=== PATIENT | female | born 1965 | race Caucasian/White ===

== ENCOUNTER → 2016-10-18 | Outpatient (CLI) | payer OTHER ==
--- NOTE | 2016-10-22 08:50 | MM ---
Reason for exam: screening (asymptomatic). Last mammogram was performed 1 year and 5 months ago. History: Family history of breast cancer in maternal grandmother at age 80. Physical Findings: A clinical breast exam by your physician is recommended on an annual basis and results should be correlated with mammographic findings. MG 3D Screening Mammo W/Cad Bilateral CC and MLO view(s) were taken. Prior study comparison: May 20, 2015, bilateral MG screening mammo w CAD. April 09, 2014, bilateral MG screening mammo w CAD. The breast tissue is heterogeneously dense. This may lower the sensitivity of mammography. No significant changes when compared with prior studies. ASSESSMENT: Negative, BI-RAD 1 RECOMMENDATION: Routine screening mammogram of both breasts in 1 year.
== END | disposition home or self-care (01) ==
LOC: RADMAMWWP 14:52
PROVIDERS: ATTEND Family Medicine
DX: Z12.31 Encounter for screening mammogram for malignant neoplasm of breast (principal)
CPT/HCPCS: 77063; G0202

== ENCOUNTER → 2016-11-21 | Outpatient (CLI) | payer OTHER ==
--- NOTE | 2016-11-21 15:13 | NM ---
EXAMINATION TYPE: NM bone 3 phase DATE OF EXAM: 11/21/2016 1:42 PM COMPARISON: Right hand 16 Nov 2016 HISTORY: Abnormal x-ray, pain in right thumb Triple phase bone scintigraphy was performed following the injection of26.8 mCi Tc 99m MDP. Immediat e images, blood pool and 3 hours post injection images acquired. FINDINGS: Increased radio pharmaceutical uptake is noted at the distal aspect of the first digit of the right h and on blood flow, blood pool and delayed imaging IMPRESSION: Findings compatible with osteomyelitis first digit right hand.
== END | disposition home or self-care (01) ==
LOC: RADNMMAIN 09:54
PROVIDERS: ATTEND Family Medicine
DX: M79.644 Pain in right finger(s) (principal); M85.80 Other specified disorders of bone density and structure, unspecified site; L03.011 Cellulitis of right finger; R93.8 Abnormal findings on diagnostic imaging of other specified body structures
CPT/HCPCS: 78315; A9503

== ENCOUNTER → 2016-12-10 | Day surgery (SDC) | payer OTHER ==
[2016-12-07 13:46] VITALS: BMI 27.3
[~2016-12-10] MED LIST: CLINDAMYCIN 900 MG in DEXTROSE 5% IN WATER 50 ML IVPB ONE; LIDOCAINE 2% INJ 20 MG/ML (20 ML MDV) ONE; LIDOCAINE 2% INJ 20 MG/ML SQ ONE
[2016-12-10 10:22] VITALS: RESP 18
[2016-12-10 12:27] VITALS: BP 127/77; PULSE 78; TEMP 98.6
--- NOTE | 2016-12-10 12:51 | IR ---
EXAMINATION TYPE: IR cvc insert >=5 years DATE OF EXAM: 12/10/2016 COMPARISON: NONE CLINICAL HISTORY: Infection Needs long-term intravenous access for antibiotics. PROCEDURE: After informed consent, the skin overlying the left basilic vein was localized with ultrasound and no alta to be compressible and patent. An ultrasound image was obtained and submitted on the patient's c huynh. The overlying skin was prepped and draped and Lidocaine was used for local anesthesia. A skin aron was made with a scalpel. Access was gained to the vein under ultrasound guidance with a 21 gau ge needle and a 0.018 inch wire was advanced. Access site was dilated with Peel-Away sheath and cath eter tailored to the appropriate length and advanced such that the distal tip is at the cavoatrial ju nction. Spot image was obtained verifying placement. Catheter was fixed to the skin with suture and a sterile dressing was placed following hemostasis. Catheter was aspirated and flushed with saline. Patient was discharged in stable condition without complication. Maximal barrier technique is utili zed. Ultrasound image is documented on the chart. Ultrasound used with sterile technique. Fluoro time and fluoroscopic images submitted to document procedure: 20 intraoperative C-arm images d ocument the procedure, 0.1 minutes fluoroscopy time IMPRESSION: STATUS POST ULTRASOUND AND FLUOROSCOPIC GUIDED PICC LINE PLACEMENT, READY FOR USE. THIS PROCEDURE WAS PERFORMED BY THE UNDERSIGNED.
== END ==
LOC: CATHCVL 10:06
PROVIDERS: ATTEND Radiology Diagnostic Radiology
DX: Z45.2 Encounter for adjustment and management of vascular access device (principal)
CPT/HCPCS: 36569; 76937; 77001; 81025; C1751; C1769; J2001; 80048; 85025; 85652; 86140

== ENCOUNTER → 2017-04-06 | Outpatient (CLI) | payer OTHER ==
--- NOTE | 2017-04-08 08:19 | MR ---
EXAMINATION TYPE: MR hand RT wo/w con DATE OF EXAM: 04/06/2017 COMPARISON: X-ray 11/16/2016, bone scan 11/21/2016 HISTORY: osteomyelitis, no known injury, pain and swelling since September 2016, 6 weeks antibiotic infus ions CONTRAST: Standard multiplanar, multisequence MRI departmental protocol utilizing 7 mL intravenous Gadavist andrew olinium contrast. FINDINGS: Extensive soft tissue edema overlying the first digit. Abnormal marrow destructive process involving the distal phalanx first digit. Remaining osseous structures are intact. Arthropathy of the first carpal metacarpal joint noted. No circumscribed fluid collection identified to suggest surrounding abscess. IMPRESSION: 1. Destructive process distal phalanx first digit with diffuse soft tissue edema in a pattern most ty pical of cellulitis with osteomyelitis.
== END | disposition home or self-care (01) ==
LOC: RADMRIMAIN 13:59
PROVIDERS: ATTEND Internal Medicine Infectious Disease
DX: M86.8X4 Other osteomyelitis, hand (principal); L03.113 Cellulitis of right upper limb
CPT/HCPCS: 73220; A9581

== ENCOUNTER → 2017-07-09 | Outpatient (CLI) | payer OTHER | LOC: CANPRECLI → RADXRYALE 09:16 | PROVIDERS: ATTEND Internal Medicine Infectious Disease | DX: Z53.9 Procedure and treatment not carried out, unspecified reason (principal) ==

== ENCOUNTER → 2017-07-09 | Outpatient (CLI) | payer OTHER ==
--- NOTE | 2017-07-09 15:54 | XR ---
Right hand HISTORY: Osteomyelitis right thumb Correlation to MR right hand 04/06/2017, right hand films 11/16/2016 There is soft tissue swelling noted at the first digit of the right hand. Bone erosion is present as noted on prior MRI and plain film. No evident dislocation. IMPRESSION: Findings suspicious for osteomyelitis first digit right hand
== END ==
LOC: RADXRYALE 11:27
PROVIDERS: ATTEND Internal Medicine Infectious Disease
DX: M86.8X4 Other osteomyelitis, hand (principal)

== ENCOUNTER → 2017-07-09 | Outpatient (CLI) | payer OTHER | LOC: CANPRECLI → RADXRYALE 09:02 | PROVIDERS: ATTEND Internal Medicine Infectious Disease | DX: Z53.9 Procedure and treatment not carried out, unspecified reason (principal) ==

== ENCOUNTER 2017-12-27 07:35 | Day surgery (SDC) | payer OTHER ==
[2017-12-26 10:59] VITALS: BMI 25.7
[~2017-12-27 07:35] MED LIST changes: -CLINDAMYCIN 900 MG in DEXTROSE 5% IN WATER 50 ML IVPB ONE; +LACTATED RINGERS 1,000 ML IV SCH; -LIDOCAINE 2% INJ 20 MG/ML (20 ML MDV) ONE; -LIDOCAINE 2% INJ 20 MG/ML SQ ONE
[2017-12-27 08:01] VITALS: RESP 16; TEMP 98.1
[2017-12-27] MEDS ORDERED: LIDOCAINE 1% 20 ML VIAL (10MG/ML) FOR IV START INTRADERMA ONE (08:15)
[2017-12-27] MEDS ORDERED: MIDAZOLAM 2 MG/2 ML VIAL ONE (08:48)
[2017-12-27] MEDS ORDERED: PROPOFOL 10 MG/ML 20 ML VIAL IV ONE (08:48)
[2017-12-27] MEDS ORDERED: fentaNYL (PF) 50 MCG/ML 2 ML AMP ONE (08:48)
--- NOTE | 2017-12-27 09:18 | P.PCN ---
Date of Procedure: 12/27/17 Procedure(s) Performed: BRIEF HISTORY: Patient is a 52-year-old pleasant white female, scheduled for an elective colonoscopy as a part of screening for colorectal neoplasia. PROCEDURE PERFORMED: Colonoscopy with snare polypectomy. PREOPERATIVE DIAGNOSIS: Screening for colon cancer. IV sedation per Anesthesia. PROCEDURE: After informed consent was obtained, the patient, was brought into the endoscopy unit. IV sedation was administered by Anesthesia under continuous monitoring. Digital rectal examination was normal. Initially the Olympus CF- 160 flexible video colonoscope was then inserted in the rectum, gradually advanced into the cecum without any difficulty. Careful examination was performed as the scope was gradually being withdrawn. Ileocecal valve and the appendiceal orifice were visualized and appeared normal. Prep was excellent. Mucosa of the cecum, ascending colon, transverse colon, descending colon, sigmoid colon, and rectum appeared normal. In the proximal rectum there were 2 polyps measuring 5 and admitted Immediate in size both of which were sessile and removed by snare polypectomy. Retroflexion was performed in the rectum and no lesions were seen. The patient tolerated the procedure well. IMPRESSION: 5 mm and 1 cm sessile rectal polyps status post polypectomy RECOMMENDATIONS: Findings of this examination were discussed with the patient as well as her family. She was advised to follow with the biopsy results. If the biopsy shows a tubular adenoma, she can have a repeat colonoscopy in 3-5 years.
[2017-12-27 09:55] VITALS: BP 115/77; PULSE 65
== END 2017-12-27 10:01 | disposition home or self-care (01) ==
LOC: ORWHC2ENDO 07:35
PROVIDERS: ATTEND Internal Medicine Gastroenterology
DX: Z12.11 Encounter for screening for malignant neoplasm of colon (principal); K62.1 Rectal polyp; Z72.0 Tobacco use; Z88.1 Allergy status to other antibiotic agents; Z79.1 Long term (current) use of non-steroidal anti-inflammatories (NSAID)
CPT/HCPCS: 88305; 45385; J2250; J3010; J2704

== ENCOUNTER → 2018-11-14 | Outpatient (CLI) | payer OTHER ==
--- NOTE | 2018-11-14 09:27 | XR ---
EXAMINATION TYPE: XR hand complete RT DATE OF EXAM: 11/14/2018 COMPARISON: 07/09/2017 HISTORY: Follow-up osteomyelitis TECHNIQUE: Three views are submitted. FINDINGS: There is destruction of the distal phalanx first digit. Soft tissue edema noted. Finding is similar t o the prior exam. Remaining osseous structures intact. IMPRESSION: 1. Soft tissue edema with stable appearing destructive change of the distal phalanx first digit malina tible with osteomyelitis.
== END | disposition home or self-care (01) ==
LOC: RADXRYALE 08:53
PROVIDERS: ATTEND Internal Medicine Infectious Disease
DX: M86.9 Osteomyelitis, unspecified (principal)

== ENCOUNTER → 2019-07-14 | Outpatient (CLI) | payer OTHER ==
--- NOTE | 2019-07-15 14:25 | MM ---
Reason for exam: screening (asymptomatic). Last mammogram was performed 2 years and 9 months ago. History: Patient is postmenopausal. Family history of breast cancer in maternal grandmother at age 80. Physical Findings: A clinical breast exam by your physician is recommended on an annual basis and results should be correlated with mammographic findings. MG Screening Mammo w CAD Bilateral CC and MLO view(s) were taken. Prior study comparison: October 18, 2016, bilateral MG 3d screening mammo w/cad. May 20, 2015, bilateral MG screening mammo w CAD. The breast tissue is heterogeneously dense. This may lower the sensitivity of mammography. Finding: There are new indeterminate coarse heterogeneous, grouped/clustered calcifications in the inner quadrant, anterior position of the right breast. ASSESSMENT: Incomplete: need additional imaging evaluation, BI-RAD 0 RECOMMENDATION: Special view mammogram of the right breast. [facility] will attempt to contact patient to return for supplemental views.
== END | disposition home or self-care (01) ==
LOC: RADMAMWWP 09:46
PROVIDERS: ATTEND Family Medicine
DX: Z12.31 Encounter for screening mammogram for malignant neoplasm of breast (principal)
CPT/HCPCS: 77067

== ENCOUNTER → 2019-07-31 | Outpatient (CLI) | payer OTHER ==
--- NOTE | 2019-07-31 10:14 | MM ---
Reason for exam: additional evaluation requested from abnormal screening. Last mammogram was performed 1 month ago. History: Patient is postmenopausal. Family history of breast cancer in maternal grandmother at age 80. Physical Findings: Nurse did not find any significant physical abnormalities on exam. MG Work Up Mamm w CAD RT CC with magnification, LM with magnification, and LM view(s) were taken of the right breast. Prior study comparison: July 14, 2019, bilateral MG screening mammo w CAD. October 18, 2016, bilateral MG 3d screening mammo w/cad. The breast tissue is heterogeneously dense. This may lower the sensitivity of mammography. There are loosely grouped 7mm calcifications in the upper inner quadrant at middle depth, mostly round and most present back to 2014. 6 month follow up recommended. These results were verbally communicated with the patient and result sheet given to the patient on 07/31/19. ASSESSMENT: Probably benign, BI-RAD 3 RECOMMENDATION: Follow-up diagnostic mammogram of the right breast in 6 months.
== END | disposition home or self-care (01) ==
LOC: RADMAMWWP 09:04
PROVIDERS: ATTEND Family Medicine
DX: R92.8 Other abnormal and inconclusive findings on diagnostic imaging of breast (principal)
CPT/HCPCS: 77065

== ENCOUNTER → 2020-08-12 | Outpatient (CLI) | payer OTHER ==
--- NOTE | 2020-08-12 10:30 | US ---
EXAMINATION TYPE: US duplex aorta DATE OF EXAM: 08/12/2020 COMPARISON: NONE CLINICAL HISTORY: F17.210 Nicotine dependence, cigarettes...... Screening AAA EXAM MEASUREMENTS: Abdominal Aorta: Proximal: 1.9 x 2.1 cm Mid: 1.8 x 1.9 cm Distal: 1.4 x 1.6 cm Bifurcation: DAY: 0.7 x 0.7 cm JUANITA: 1.0 x 0.9 cm No evidence of AAA, wall calcifications IMPRESSION: Atheromatous change without evidence for aneurysm.
== END | disposition home or self-care (01) ==
LOC: RADUSWWP 10:06
PROVIDERS: ATTEND Family Medicine
DX: I70.0 Atherosclerosis of aorta (principal); E78.2 Mixed hyperlipidemia; F17.210 Nicotine dependence, cigarettes, uncomplicated
CPT/HCPCS: 93979

== ENCOUNTER → 2020-10-10 | Outpatient (CLI) | payer OTHER ==
--- NOTE | 2020-10-11 09:38 | MM ---
Reason for exam: additional evaluation requested from prior study. Last mammogram was performed 1 year and 2 months ago. History: Patient is postmenopausal. Family history of breast cancer in maternal grandmother at age 80. Physical Findings: Nurse did not find any significant physical abnormalities on exam. MG Diagnostic Mammo w CAD SHONNA Bilateral CC and MLO view(s) were taken. Prior study comparison: July 31, 2019, right breast MG work up mamm w CAD RT. July 14, 2019, bilateral MG screening mammo w CAD. There are scattered fibroglandular densities. Benign appearing calcifications in the left breast. There is no discrete abnormality. These results were verbally communicated with the patient and result sheet given to the patient on 10/10/20. ASSESSMENT: Benign, BI-RAD 2 RECOMMENDATION: Routine screening mammogram of both breasts in 1 year.
== END | disposition home or self-care (01) ==
LOC: RADMAMWWP 14:01
PROVIDERS: ATTEND Family Medicine
DX: Z78.0 Asymptomatic menopausal state (principal); Z80.3 Family history of malignant neoplasm of breast
CPT/HCPCS: 77066

== ENCOUNTER 2021-03-10 09:26 | Emergency (ER) | payer OTHER ==
[2021-03-10 09:32] VITALS: BP 135/88; PULSE 79; RESP 18; TEMP 98
--- NOTE | 2021-03-10 10:03 | XR ---
EXAMINATION TYPE: XR knee complete RT DATE OF EXAM: 03/10/2021 CLINICAL HISTORY: pain TECHNIQUE: Three views of the right knee are obtained. COMPARISON: 03/26/2014 FINDINGS: There is no acute fracture/dislocation. The tri-compartment joint spaces appear within no rmal limits. Moderate to large suprapatellar joint effusion. IMPRESSION: There is no acute fracture or dislocation.ICD 10 NO FRACTURE, INITIAL EVALUATION
--- NOTE | 2021-03-10 10:09 | ED ---
General Adult HPI - General Chief complaint: Extremity Injury, Lower Stated complaint: knee pain Time Seen by Provider: 03/10/21 09:33 Source: patient, family Mode of arrival: ambulatory Limitations: no limitations - History of Present Illness Initial comments: 55-year-old female presenting to emergency Department with chief complaint of right knee pain. Patient reports incident occurred yesterday while she was walking at the grocery store when she slipped with her right leg and it moved laterally. States her knee never make contact with the ground. Ever since the incident, the patient has been extreme seeing pain with weightbearing. States the pain is 10/10 whenever she is applying weight. He reports limited range of motion with full flexion and extension of the knee. Also reports swelling in the right knee with minimal erythema or ecchymosis. Denies any paresthesias or weakness in the right leg. - Related Data Home Medications Medication Instructions Recorded Confirmed No Known Home Medications 03/10/21 03/10/21 Allergies Allergy/AdvReac Type Severity Reaction Status Date / Time cephalexin Allergy Severe Rash/Hives, Verified 03/10/21 10:03 Itchy, Hot. poison leslye extract Allergy Unknown Unknown Verified 03/10/21 10:03 Review of Systems ROS Statement: Those systems with pertinent positive or pertinent negative responses have been documented in the HPI. ROS Other: All systems not noted in ROS Statement are negative. Past Medical History Additional Past Medical History / Comment(s): DDD L-4 & L-5. , RIGHT THUMB OSTEOMYELITIS on antibiotic, currently has Posion Leslye on bilateral arms. Notifying Dr Hankins's office of current Posion Leslye. History of Any Multi-Drug Resistant Organisms: None Reported Past Surgical History: Section, Tubal Ligation Additional Past Surgical History / Comment(s): HEMMOROIDECTOMY, LIPOMA ON HEAD REMOVED. Past Anesthesia/Blood Transfusion Reactions: No Reported Reaction Past Psychological History: No Psychological Hx Reported Smoking Status: Current every day smoker Past Alcohol Use History: Rare Past Drug Use History: None Reported - Past Family History Mother Family Medical History: No Reported History General Exam Limitations: no limitations General appearance: alert, in no apparent distress Head exam: Present: atraumatic, normocephalic, normal inspection Eye exam: Present: normal appearance Pupils: Present: normal accommodation ENT exam: Present: normal exam, normal oropharynx, mucous membranes moist Neck exam: Present: normal inspection, full ROM. Absent: tenderness, meningismus Respiratory exam: Present: normal lung sounds bilaterally. Absent: respiratory distress, wheezes, rales, rhonchi, stridor Cardiovascular Exam: Present: regular rate, normal rhythm, normal heart sounds. Absent: systolic murmur Extremities exam: Present: tenderness (Lateral knee tenderness. Positive Bo with external rotation), normal capillary refill, other (Palpable DP and PT bilaterally. Sensation intact in right leg). Absent: normal inspection (Mild swelling to the right knee), full ROM (Limited range of motion with full extension and flexion in the right knee.), pedal edema, joint swelling, calf tenderness Back exam: Present: normal inspection, full ROM. Absent: tenderness, CVA tenderness (R), CVA tenderness (L) Neurological exam: Present: alert, oriented X3 Psychiatric exam: Present: normal affect, normal mood Skin exam: Present: warm, dry, intact, normal color Course Vital Signs 03/10/21 09:27 Temperature 98.0 F Pulse Rate 79 Respiratory 18 Rate Blood Pressure 135/88 O2 Sat by Pulse 98 Oximetry Medical Decision Making - Medical Decision Making 55-year-old female presenting to emergency Department with chief complaint of right knee pain. On physical examination, patient is a positive Bo with external rotation of the right leg. I did offer analgesia, she declined. Patient is otherwise neurovascularly intact. Knee immobilizer was applied. Patient was advised to follow-up with wound care specialist. Return parameters were thoroughly discussed the patient was understanding and agreeable. Case discussed with Dr. Bedolla Disposition Clinical Impression: Knee injury, Knee sprain Disposition: HOME SELF-CARE Condition: Stable Instructions (If sedation given, give patient instructions): Knee Sprain (ED) Additional Instructions: Please return to the Emergency Department if symptoms worsen or any other concerns. Is patient prescribed a controlled substance at d/c from ED?: No Referrals: Nathan Brooks DO [Primary Care Provider] - 1-2 days Feliz Meraz MD [Medical Doctor] - 1-2 days Eddie Shepard DO [Doctor of Osteopathic Medicine] - 1-2 days Time of Disposition: 10:22
== END 2021-03-10 10:48 | disposition home or self-care (01) ==
LOC: EC 09:26
DX: S83.8X1A Sprain of other specified parts of right knee, initial encounter (principal); Z88.1 Allergy status to other antibiotic agents; Z98.51 Tubal ligation status; F17.200 Nicotine dependence, unspecified, uncomplicated; W01.0XXA Fall on same level from slipping, tripping and stumbling without subsequent striking against object, initial encounter; Y93.01 Activity, walking, marching and hiking
CPT/HCPCS: 99283

== ENCOUNTER → 2021-04-08 | Outpatient (CLI) | payer OTHER ==
--- NOTE | 2021-04-08 18:37 | MR ---
EXAMINATION TYPE: MR knee RT wo con DATE OF EXAM: 04/08/2021 COMPARISON: None HISTORY: Right inner knee pain, pain behind knee, and swelling since 03-09-21 due to slipping Multiplanar multiecho imaging of the right knee without contrast. There is complete tear of the anterior cruciate ligament. Posterior cruciate ligament is intact. Ther e is mild knee joint effusion. There is abnormal increased signal in the anterior horn of the lateral meniscus. This extends anteriorly. There is small linear area of increased signal in the posterior horn medial meniscus extending to the inferior surface. The patella is intact. Joint spaces are fairly normal. There is patchy abnormal increased signal in t he posterior aspect of the proximal tibia on the proton density images. This area measures 2 cm and c onsistent with a bone bruise adjacent to the fibula. The distal femur is intact. The collateral ligam ents appear intact. IMPRESSION: Complete tear anterior cruciate ligament. Complex tear anterior horn of the lateral meniscus. Small t ear of the posterior horn of the medial meniscus. Knee joint effusion. Moderate bone bruise involving the posterior lateral proximal tibia. No fracture line seen.
== END | disposition home or self-care (01) ==
LOC: RADMRIMAIN 07:40
PROVIDERS: ATTEND Family Medicine
DX: S83.281A Other tear of lateral meniscus, current injury, right knee, initial encounter (principal); S83.241A Other tear of medial meniscus, current injury, right knee, initial encounter

== ENCOUNTER 2021-07-07 08:46 | Day surgery (SDC) | payer OTHER ==
[2021-06-30 14:53] VITALS: BMI 26.2
--- NOTE | 2021-07-06 12:09 | HP ---
HISTORY AND PHYSICAL CHIEF COMPLAINT: Right knee pain. 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 She slipped and fell in a grocery store, injuring her knee. She notes medial pain along with swelling and stiffness ever since. She denies previous problems. PAST MEDICAL HISTORY: Negative. PAST SURGICAL HISTORY: Significant right hand surgery and section. CURRENT MEDICATIONS: None. ALLERGIES: SHE HAS ALLERGIES TO KEFLEX. FAMILY HISTORY: Significant for COPD and cancer. SOCIAL HISTORY: Significant for 1 pack per day tobacco use and social alcohol use. REVIEW OF SYSTEMS: Sixteen-point review of systems otherwise reviewed and is noncontributory. PHYSICAL EXAMINATION: On examination, the patient is approximately 5 foot 3, 148 pounds of mesomorphic habitus. HEENT exam is nonfocal. NECK is supple. She has painless passive motion of the right hip. Straight leg raise is negative. Active motion right knee -8 to 130 degrees of flexion. She has a trace effusion. She is tender about the medial joint line. Collaterals are stable, Christina's 2+, pivot shift is positive, Bo's is positive. Her distal neurovascular exam appears intact in the right lower extremity. MRI report 04/08/2021 of the right knee shows evidence of ACL rupture along with anterior lateral meniscal tear and posterior medial meniscal tear. IMPRESSION: 1. Internal derangement right knee with medial and lateral meniscal tears. 2. Right knee ACL rupture. RECOMMENDATIONS: I talked to the patient at length regarding her condition along with treatment options. At this point, she is having pain and mechanical symptoms after this acute injury and opts to proceed with surgery. We will plan to proceed with arthroscopic evaluation with possible partial medial and lateral meniscectomy in addition to possible ACL debridement. I did discuss the option of ACL reconstruction. However, at this point, we are not planning to proceed with that. We will likely perform that as an outpatient procedure. Risks and benefits were discussed at length in layman's terms. MMODL / IJN: [id number] /
[~2021-07-07 08:46] MED LIST changes: +CLINDAMYCIN 900 MG in DEXTROSE 5% IN WATER 50 ML IVPB PRN; +DEXAMETHASONE SOD PHOSPHATE 4 MG/ML 1 ML VIAL IV ONE; +HYDROmorphone 0.5 MG/0.5 ML SYRINGE IVP PRN; +ONDANSETRON 4 MG/2 ML VIAL IVP ONE
[2021-07-07 09:02] VITALS: TEMP 96.8
[2021-07-07] MEDS ORDERED: LIDOCAINE 1% (10MG/ML) FOR IV START INTRADERMA ONE (09:15)
[2021-07-07] MEDS ORDERED: LIDOCAINE 1% INJ 10MG/ML (20 ML MDV) ONE (10:30)
[2021-07-07] MEDS ORDERED: fentaNYL (PF) 50 MCG/ML 2 ML AMP ONE (10:30)
[2021-07-07] MEDS ORDERED: MIDAZOLAM 2 MG/2 ML VIAL ONE (10:30)
[2021-07-07] MEDS ORDERED: PROPOFOL 10 MG/ML 20 ML VIAL IV ONE (10:30)
--- NOTE | 2021-07-07 11:27 | P.OP ---
Date of Procedure: 07/07/21 Preoperative Diagnosis: Right knee internal derangement Postoperative Diagnosis: Right knee bucket handle tear medial meniscus, complete ACL rupture. Procedure(s) Performed: Right knee arthroscopic partial medial meniscectomy/ACL debridement Anesthesia: ZAKA Surgeon: Javi Sol Estimated Blood Loss (ml): 10 Pathology: none sent Condition: stable Disposition: PACU Indications for Procedure: The patient's 55-year-old female who presents with progressive right knee pain and mechanical symptoms after previous injury. A discussion of the risks and benefits of continued conservative measures versus operative intervention was made with patient. She proceed with surgery. Operative risks to include infection, neurovascular injury, development of blood clots, possible persistence of instability need for subsequent procedures was discussed. Informed consent was obtained. Operative Findings: As below Description of Procedure: The patient was brought to the operating room, and after induction of general anesthesia examined the right knee. Collaterals were stable, Christina was 2+, and posterior drawer was negative. The right lower extremity was prepped and draped in a normal fashion. A superior lateral portal was made through a 3 mm skin incision superior and lateral to the patella. This was used for outflow. A lateral portal was made through a 5 mm vertical skin incision lateral to the patella tendon above the joint line. Diagnostic arthroscopy was performed. On inspection of the medial compartment, a bucket handle tear involving the medial meniscus was noted and locked anteriorly. This was debrided back to stable base with straight baskets and a motorized shaver. The remaining medial meniscus was stable and intact. On inspection of the notch, the anterior cruciate ligament appeared to be ruptured off the lateral femoral wall. The portion impinging on the lateral compartment was debrided with a motorized shaver.. On inspection of the lateral compartment, the lateral meniscus was stable and intact. On inspection of the patellofemoral articulation, there is grade 2 chondral changes involving lateral patella facet.. The gutters were clear debris. The knee was then thoroughly irrigated. The portals were closed with Steri-Strips. A sterile dressing was applied in addition to a compression stocking. The patient was awoken from general anesthesia and transferred to recovery room in good condition. Blood loss was estimated at 10 mL. No complications were incurred.
[2021-07-07 11:47] VITALS: RESP 16
[2021-07-07] MEDS ORDERED: KETOROLAC 15 MG/ML 1 ML VIAL IVP ONE (11:53)
[2021-07-07] MEDS ORDERED: HYDROmorphone 0.5 MG/0.5 ML SYRINGE IVP ONE (11:55)
[2021-07-07 12:38] VITALS: BP 130/81; PULSE 75
== END 2021-07-07 13:35 | disposition home or self-care (01) ==
LOC: OR 08:46
PROVIDERS: ATTEND Orthopaedic Surgery
DX: S83.211A Bucket-handle tear of medial meniscus, current injury, right knee, initial encounter (principal); S83.511A Sprain of anterior cruciate ligament of right knee, initial encounter; W01.0XXA Fall on same level from slipping, tripping and stumbling without subsequent striking against object, initial encounter; M23.91 Unspecified internal derangement of right knee; Z98.891 History of uterine scar from previous surgery; Z98.890 Other specified postprocedural states; Z83.6 Family history of other diseases of the respiratory system; Z80.9 Family history of malignant neoplasm, unspecified; Z98.51 Tubal ligation status; F17.210 Nicotine dependence, cigarettes, uncomplicated; Z79.1 Long term (current) use of non-steroidal anti-inflammatories (NSAID); Z88.1 Allergy status to other antibiotic agents
CPT/HCPCS: 29881; J2250; J1100; J2405; J2001; J3010; J1885; J2704; J1170